=== PATIENT | female | born 1970 ===

== ENCOUNTER 2020-09-22 14:12 | Inpatient (IN) ==
[2020-09-22] MEDS ORDERED: VANCOMYCIN INJ 1,500 MG in SODIUM CHLORIDE 0.9% 500 ML IV STA (14:57)
[2020-09-22 15:05] LABS: Basophils # 0.1 10*3/uL (0.0-0.2); Basophils % 0.5 % (0.0-0.8); Eosinophils # 0.1 10*3/uL (0.0-0.87); Eosinophils % 0.7 % (0.00-10.9); Hematocrit 33.5 VOL% (35.7-47.0); Hemoglobin 11.2 GM/DL (12.0-16.0); Immature Granulocytes % 0.5 %; Immature Granulocytes Absolute 0.05 #; Lymphocytes # 1.4 10*3/uL (1.4-4.0); Lymphocytes % 12.5 % (21.3-54.2); Mean Corpuscular HGB Conc 33.4 GM/DL (32-36); Mean Corpuscular Volume 94.6 FL (87-102); Mean Platelet Volume 9.5 FL (9.6-12.0); Monocytes % 10.4 % (1.7-12.7); Neutrophils % 75.4 % (38.7-73.9); Platelet Count 216 T/CUMM (130-400); Red Blood Count 3.54 MC/CUMM (3.8-5.5); White Blood Count 10.8 T/CUMM (4-12)
[2020-09-22 15:20] LABS: Calcium 8.9 MG/DL (8.5-10.1); Osmolality,Calculated 272.1 MOS/KG (273-304); Potassium 3.8 MMOL/L (3.5-5.1)
[2020-09-22] MEDS ORDERED: MORPHINE 4 MG/1 ML VIAL IV PRN (16:25)
[2020-09-22] MEDS ORDERED: ONDANSETRON 4 MG/2 ML VIAL IV PRN (16:25)
[2020-09-22] MEDS ORDERED: hydrALAZINE 20 MG/1 ML VIAL IV PRN (16:25)
[2020-09-22] MEDS ORDERED: DEXTROSE 50% 25 GM/50 ML VIAL IV PRN (16:25)
[2020-09-22] MEDS ORDERED: GLUCAGON 1 MG VIAL IM PRN (16:25)
[2020-09-22] MEDS ORDERED: VANCOMYCIN INJ 1,500 MG in SODIUM CHLORIDE 0.9% 500 ML IV PRN (16:54)
[2020-09-22] MEDS ORDERED: VANCOMYCIN INJ 1,000 MG in SODIUM CHLORIDE 0.9% 250 ML IV ONE (18:00)
[2020-09-22] MEDS: INSULIN LISPRO 100 UNIT/ML SUBCUT SCH ×2 (18:19→23:32)
[2020-09-22] MEDS: HEPARIN 5,000 UNIT/1 ML VIAL SUBCUT SCH (21:13)
[2020-09-22] MEDS: METOPROLOL SUCCINATE XL 100 MG TABLET PO SCH (21:30)
[2020-09-22] MEDS: SIMVASTATIN 10 MG TABLET PO SCH (21:30)
[2020-09-22] MEDS: GABAPENTIN 300 MG CAPSULE PO SCH (21:30)
[2020-09-22] MEDS: cefTRIAXone 1,000 MG in SODIUM CHLORIDE 0.9% 100 ML IV SCH (23:30)
[2020-09-23 05:48] LABS: Basophils # 0.1 10*3/uL (0.0-0.2); Basophils % 0.8 % (0.0-0.8); Eosinophils # 0.2 10*3/uL (0.0-0.87); Eosinophils % 2.4 % (0.00-10.9); Hemoglobin 10.1 GM/DL (12.0-16.0); Immature Granulocytes % 0.3 %; Immature Granulocytes Absolute 0.02 #; Lymphocytes # 1.8 10*3/uL (1.4-4.0); Lymphocytes % 29.4 % (21.3-54.2); Mean Corpuscular HGB Conc 33.7 GM/DL (32-36); Mean Corpuscular Volume 94.6 FL (87-102); Mean Platelet Volume 9.4 FL (9.6-12.0); Neutrophils % 56.1 % (38.7-73.9); Platelet Count 190 T/CUMM (130-400); Red Blood Count 3.17 MC/CUMM (3.8-5.5); Red Cell Distribution Width 14.9 % (9.3-17.3); White Blood Count 6.3 T/CUMM (4-12)
[2020-09-23 06:08] LABS: Calcium 8.8 MG/DL (8.5-10.1); Osmolality,Calculated 283.8 MOS/KG (273-304); Potassium 3.7 MMOL/L (3.5-5.1)
[2020-09-23] MEDS: INSULIN LISPRO 100 UNIT/ML SUBCUT SCH ×4 (08:21→21:06)
[2020-09-23] MEDS ORDERED: amLODIPine 5 MG TABLET PO SCH (09:00)
[2020-09-23] MEDS: PANTOPRAZOLE 40 MG TABLET PO SCH (09:54)
[2020-09-23] MEDS ORDERED: hydrALAZINE 20 MG/1 ML VIAL IV PRN (10:02)
[2020-09-23] MEDS: HEPARIN 5,000 UNIT/1 ML VIAL SUBCUT SCH ×2 (10:14→21:14)
[2020-09-23] MEDS ORDERED: amLODIPine 5 MG TABLET PO ONE (10:30)
[2020-09-23] MEDS ORDERED: CLINDAMYCIN INJ 900 MG in PREMIX 1 EACH IV ONE (10:50)
[2020-09-23] MEDS ORDERED: LACTATED RINGERS 1,000 ML IV SCH (11:30)
[2020-09-23] MEDS ORDERED: fentaNYL 100 MCG/2 ML VIAL ONE (11:53)
[2020-09-23] MEDS ORDERED: ONDANSETRON 4 MG/2 ML VIAL ONE (11:53)
[2020-09-23] MEDS ORDERED: propofoL 200 MG/20 ML VIAL IV ONE (11:53)
[2020-09-23] MEDS ORDERED: LIDOCAINE 2% 5 ML VIAL ONE (11:53)
[2020-09-23] MEDS ORDERED: MIDAZOLAM 2 MG/2 ML VIAL ONE (11:53)
[2020-09-23] MEDS ORDERED: BUPIVACAINE MPF 0.25% 30 ML VIAL ONE (12:13)
[2020-09-23] MEDS ORDERED: LIDOCAINE 1% 20 ML VIAL ONE (12:13)
[2020-09-23] MEDS ORDERED: glipiZIDE 10 MG TABLET PO SCH (17:00)
[2020-09-23] MEDS: SIMVASTATIN 10 MG TABLET PO SCH (21:07)
[2020-09-23] MEDS: GABAPENTIN 300 MG CAPSULE PO SCH (21:07)
[2020-09-23] MEDS: METOPROLOL SUCCINATE XL 100 MG TABLET PO SCH (21:07)
[2020-09-23] MEDS: cefTRIAXone 1,000 MG in SODIUM CHLORIDE 0.9% 100 ML IV SCH (23:25)
[2020-09-24 04:49] LABS: Basophils % 0.7 % (0.0-0.8); Eosinophils # 0.2 10*3/uL (0.0-0.87); Eosinophils % 2.7 % (0.00-10.9); Hematocrit 29.4 VOL% (35.7-47.0); Hemoglobin 9.8 GM/DL (12.0-16.0); Immature Granulocytes % 0.5 %; Immature Granulocytes Absolute 0.03 #; Lymphocytes # 1.3 10*3/uL (1.4-4.0); Mean Corpuscular HGB Conc 33.3 GM/DL (32-36); Mean Corpuscular Volume 95.8 FL (87-102); Mean Platelet Volume 9.3 FL (9.6-12.0); Monocytes % 10.8 % (1.7-12.7); Neutrophils % 62.3 % (38.7-73.9); Platelet Count 206 T/CUMM (130-400); Red Blood Count 3.07 MC/CUMM (3.8-5.5); Red Cell Distribution Width 14.9 % (9.3-17.3); White Blood Count 5.7 T/CUMM (4-12)
[2020-09-24 05:00] LABS: Calcium 8.7 MG/DL (8.5-10.1); Osmolality,Calculated 282.4 MOS/KG (273-304); Potassium 3.9 MMOL/L (3.5-5.1)
[2020-09-24 07:32] VITALS: BP 162/60
[2020-09-24] MEDS: INSULIN LISPRO 100 UNIT/ML SUBCUT SCH ×2 (07:41→12:00)
[2020-09-24] MEDS ORDERED: amLODIPine 10 MG TABLET PO SCH (09:00)
[2020-09-24] MEDS: HEPARIN 5,000 UNIT/1 ML VIAL SUBCUT SCH (13:42)
[2020-09-24] MEDS: PANTOPRAZOLE 40 MG TABLET PO SCH (13:42)
== END 2020-09-24 15:20 | disposition home or self-care (01) | DRG 255 ==
LOC: N.ED 14:12 → N.EDINP 16:25 → N.3E 16:45
PROVIDERS: ADMIT Internal Medicine; ATTEND Internal Medicine